=== PATIENT | female | born 1990 | race Caucasian/White ===

== ENCOUNTER 2018-07-11 12:01 | Emergency (ER) | payer BC ==
--- OUTSIDE RECORDS SUMMARY | 2018-07-11 12:07 | XMS REPORT | Continuity of Care Document ---
:1990 External Reference #:[id number] Author Name Eh Paty Care Team Providers Name Role Phone Teri Pascal MD Primary Care Physician Unavailable Payers Date Identification Numbers Payment Provider Subscriber Policy Number: [id number] [facility] simeon Schwab PayID: [id number] [address] [address] [place] [address] Advance Directives Description No Information Available Problems Description No Information Family History Date Family Member(s) Observation Comments Father Hypercholesterolemia Father Hyperthyroidism Father Paraplegic Mother Diabetes, Type 2 Children None Siblings 2 Siblings Oldest of 3 children First Brother A&W First Sister Hyperthyroidism Paternal Grandfather due to DE () Paternal Grandmother due to Colon Cancer () Maternal Grandfather due to Uknown Cod to pt () Maternal Grandmother Emphysema Social History Type Date Description Comments Sex Unknown Education Highest Level Completed, Master's Degree Marital Status Lives With Diet Healthy, Well Balanced Pets 2 cats Occupation Medical Esthetician Tobacco Use Start: Unknown Never Smoked Cigarettes ETOH Use Rarely consumes alcohol Recreational Drug Use Denies Drug Use Tobacco Use Start: Unknown Patient has never smoked Smoking Status Reviewed: 06/15/18 Patient has never smoked Exercise Type/Frequency Exercises regularly Seat Belt/Car Seat Always uses seat belt Currently Active Patient is currently sexually active Contraceptive Methods None STD's No STD History Allergies, Adverse Reactions, Alerts Date Description Reaction Status Severity Comments 01/20/2018 NKDA Active 02/18/2018 Environmental Cough, Nasal congestion Active Seasonal/pollen Medications Medication Date Status Form Strength Qnty SIG Indications Ordering Provider Progesterone 03/19/ Active Capsules 100mg 90caps place 1 Barbra Micronized 2018 capsule herb Quezada MD at bedtime Levothyroxine 01/20/ Active Tablets 50mcg/75mc 30tabs Barbra Sodium 2017 g MD Damien Singulair 00/ Active Unknown 0000 Iron (Ferrous 00/ Active Unknown Gluconate) 0000 Vitamin D / Active Unknown (Cholecalciferol 0000 ) Vitamin / Active Unknown 0000 Misoprostol 02/18/ Hx Tablets 200mcg 8tabs 4 tabs to Barbra 2018 - vagina Damien and 2017 repeat in 3 hours Magnesium / Hx Unknown 0000 - 2017 Medications Administered in Office Medication Date Status Form Strength Qnty SIG Indications Ordering Provider PT SCRN Tbco Administered Injection Barbra Id as Non User 018 MD Damien PT SCRN Tbco Administered Injection Barbra Id as Non User 018 MD Damien PT SCRN Tbco Administered Injection Barbra Id as Non User 018 MD Damien PT SCRN Tbco Administered Injection Barbra Id as Non User 018 MD Damien Immunizations Description No Information Available Vital Signs Date Vital Result Comment 06/15/2018 8:51am Height 61 inches 5'1" Weight 148.00 lb BMI (Body Mass Index) 28.0 kg/m2 Last Menstrual Period [id number] 1 Parity 0 03/19/2018 3:30pm BP Systolic 130 mmHg BP Diastolic 88 mmHg Height 61 inches 5'1" Weight 151.00 lb BMI (Body Mass Index) 28.5 kg/m2 Last Menstrual Period 0646744 1 Parity 0 02/25/2018 12:24pm BP Systolic 132 mmHg BP Diastolic 86 mmHg Height 61 inches 5'1" Weight 153.00 lb BMI (Body Mass Index) 28.9 kg/m2 Last Menstrual Period 9286114 1 Parity 0 02/18/2018 8:14am BP Systolic 140 mmHg BP Diastolic 82 mmHg Height 61 inches 5'1" Weight 157.00 lb BMI (Body Mass Index) 29.7 kg/m2 Last Menstrual Period 1002256 1 Parity 0 01/20/2018 3:09pm BP Systolic 124 mmHg BP Diastolic 68 mmHg Height 61 inches 5'1" Weight 156.00 lb BMI (Body Mass Index) 29.5 kg/m2 Last Menstrual Period 3529102 1 Parity 0 Results Test Date Facility Test Result H/L Range Note Laboratory test 02/25/2018 [facility] Surgical SEE RESULT 1 [place] [address] Pathology BELOW [phone] PNL No 02/17/2018 [facility] Rubella Screen Immune Immune Urine [address] [place] [address] [phone] Hemoglobin A1c 5.4 % N 4.0-5.6 2 Hepatitis B Surface Antigen Nonreactive Nonreactive Syphillis Igg W/Reflex RPR Nonreactive Nonreactive 3 CBC With No 02/17/2018 [facility] White Blood 11.2 10^3/uL High 3.5-10.8 Diff [address] [employer] [place] [address] [phone] Red Blood Count 4.69 10^6/uL N 4.00-5.40 Hemoglobin 14.7 g/dL N 12.0-16.0 Hematocrit 44 % N 35-47 Mean Corpuscular Volume 93 fL N 80-97 Mean Corpuscular Hemoglobin 31 pg N 27-31 Mean Corpuscular HGB Conc 34 g/dL N 31-36 Red Cell Distribution Width 13 % N 10.5-15 Platelet Count 355 10^3/uL N 150-450 Mean Platelet Volume 7.9 fL N 7.4-10.4 Type And Screen 02/17/2018 [facility] Patient Blood A Positive [address] [employer] [place] [address] [phone] Antibody Screen NEGATIVE HIV 1/2 AB 02/17/2018 [facility] HIV 1 2 Nonreactive Nonreactive 4 Evaluation [address] [employer] [place] [address] [phone] Lead 02/17/2018 [facility] Lead,Venous, < 1.0 g/dL 0.0- 4.9 5 [address] [place], [place] [id number] [phone] Venous/Capillary Venous Submitting Laboratory Phone [phone] Laboratory test 01/20/2018 [facility] Cytology SEE RESULT 7 [place] [address] BELOW [phone] GC/Chlamydia 01/20/2018 [facility] Chlamydia Negative [place] [address] trachomatis Rna [phone] Neisseria gonorrhoeae (GC) Rna Negative Negative 1 SEE RESULT BELOW Name: SOFI SCHWAB : [address]: Barbra Quezada MD Acct: [id number] Unit: [id number] AGE: 28 Location: [facility] Re02/25/18 SEX: F Status: REG REF SPEC: [id number] GIOVANNI: 02/25/18-[address] [facility] [address]: Barbra Quezada MD REQ: [id number] RECD: 02/25/18 STATUS: SOUT _ ORDERED: LEVEL 4 COMMENTS: [id number] FINAL DIAGNOSIS Uterine contents, curettage: -- Products of conception including necrotic decidua and immature chorionic villi. CLINICAL HISTORY LMP 11/28/17, ultrasound 02/18/18 6 wld, no heartbeat, tissue passed 02/25 PRE-OPERATIVE DIAGNOSIS Missed GROSS DESCRIPTION The specimen is received in formalin labeled, POC, and consists of a 7.7 x 5.6 by up to 1.4 cm aggregate of sandy-santiago irregular to saccular membranous and papilliferous soft tissue fragments admixed with a small amount of red-brown blood clot. The saccular tissue fragment is partially lined by glistening smooth sandy membranous tissue and contains transparent viscid material. Chorionic villi are identified. No parts are identified. Injection Molding Supervisor sections, two cassettes. Signed by and Reported on: Precious Paula MD 02/27/18 1414 END OF REPORT DEPARTMENT OF PATHOLOGY, [address] [place] [address] Richard Desphande M.D. Director [facility] # [id number] 2 Therapeutic target for the treatment of diabetes mellitus patients is <7% HBA1C, and in selective patients <6.0%. Please refer to [place] [employer] diabetic care guidelines for further information. 3 Warning: A positive result is not useful for establishing a diagnosis of syphilis. In most situations, such a result may reflect a prior treated infection; a negative result can exclude a diagnosis of syphilis except for incubating or early primary disease. 4 It is recognized that currently available assays for the detection of antibodies to HIV-1 and/or HIV-2 may not detect all infected individuals. HIV antibodies may be undetectable in some stages of the infection and in some clinical conditions. The performance of this assay has not been established for populations of infants or children. Assayed by Chemiluminescence Microparticle Immunoassay on the Siemens Advia Centaur CP. Values obtained with different methods or kits cannot be used interchangeably.The diagnostic specificity of the ADVIA Centaur 1/O/2 Enhanced assay in the low risk population was 99.90% (6052/6058) with a 95% confidence interval of 99.78 to 99.96%. 5 ADDITIONAL INFORMATION Testing performed by Inductively Coupled Plasma-Mass Spectrometry (ICP-MS). This test was developed and its performance characteristics determined by [facility] in a manner consistent with CLIA requirements. This test has not been cleared or approved by the U.S. Food and Drug Administration. 6 Test Performed by: [facility] [address] [place] [address] 7 SEE RESULT BELOW Name: JOSSELINSOFI : [address]: Barbra Quezada MD Acct: [id number] Unit: [id number] AGE: 27 Location: [facility] Re01/20/18 SEX: F Status: REG REF SPEC: [id number] GIOVANNI: 01/20/[address] [facility] [address]: Barbra Quezada MD REQ: [id number] RECD: 01/21/188 STATUS: SOUT _ ORDERED: TP IMAGE ANALYS, HPV/Thin Prep COMMENTS: [id number] Negative for Intraepithelial lesion or Malignancy Date Time Test Result Flag (u) Normal Range 01/20/18 1655 @ HPV RNA POSITIVE An Negative @ @ The high-risk HPV types detected by the assay include: 16, @ 18, 31, 33, 35, 39, 45, 51, 52, 56, 58, 59, 66, and 68. A. Ectocervical/Endocervical Specimen Adequacy: Satisfactory of evaluation Transformation zone component identified Patient Information: HPV: High risk HPV RNA testing regardless of pap results. Actual Specimen Date: 01/20/18 Last Menstrual Date: 11/28/17 Signed by and Reported on: OTONIEL Lamb(ASC) 7068 This Pap test was evaluated with the assistance of the CampEasyPrep Test Imaging System. Due to cytologic findings at the mixed animal veterinarian microscope, comprehensive manual rescreening by a Cooling Pipe Inspector may be required. The Pap Smear is a screening test designed to aid in the detection of premalignant and malignant conditions of the uterine cervix. It is not a diagnostic procedure and should not be used as the sole means of detecting cervical cancer. Both false- positive and false- negative reports do occur. Depending on your risk status, a Pap smear should be obtained and evaluated every 1-3 years. END OF REPORT DEPARTMENT OF PATHOLOGY, [address] [place] [address] Richard Deshpande M.D. Director [facility] # [id number] Procedures Date Code Description Status 02/18/2018 66614 OB Ultrasound First Trimester Completed Encounters Type Date Location Provider Dx Diagnosis Office Visit 03/19/2018 [facility] Office Barbra Quezada O03.9 Complete or unsp 3:15p spontaneous without complication Office Visit 02/25/2018 [facility] Office Barbra Quezada O03.9 Complete or unsp 12:30p spontaneous without complication Office Visit 02/18/2018 [facility] Office Barbra Quezada O02.1 Missed 1:15p Office Visit 02/18/2018 [facility] Marina Lilly O36.80x0 w 9:00a DONOVAN Vora inconclusive viability, unsp Office Visit 01/20/2018 [facility] Barbra Quezada, N92.6 Irregular 3:00p menstruation, unspecified Plan of Treatment 03/19/2018 - Barbra Quezada MDO03.9 Complete or unspecified spontaneous without complicComments:Pt 28 yo presents after spontaneous loss after misoprostol use. Pt still very sadby loss but is hopeful to conceive again. Pt to use micronized progesterone starting 2 days post ovulation and check test at day 28 if negative then can d/c progesterone and restartwith next cycle at 2 days post ovulation. Pt to f/u in May for review of cycles.
--- OUTSIDE RECORDS SUMMARY | 2018-07-11 12:07 | XMS REPORT | Continuity of Care Document ---
:1990 External Reference #:[id number] Author Name Eh Paty Care Team Providers Name Role Phone Teri Pascal MD Primary Care Physician Unavailable Payers Date Identification Numbers Payment Provider Subscriber Policy Number: [id number] [facility] simeon Schwab PayID: [id number] [address] [address] [place] [address] Advance Directives Description No Information Available Problems Description No Information Family History Date Family Member(s) Observation Comments Father Hypercholesterolemia Father Hyperthyroidism Father Paraplegic Mother Diabetes, Type 2 Children None Siblings 2 Siblings Oldest of 3 children First Brother A&W First Sister Hyperthyroidism Paternal Grandfather due to [place] () Paternal Grandmother due to Colon Cancer () Maternal Grandfather due to Uknown Cod to pt () Maternal Grandmother Emphysema Social History Type Date Description Comments Sex Unknown Education Highest Level Completed, Master's Degree Marital Status Lives With Diet Healthy, Well Balanced Pets 2 cats 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 Tobacco Use Start: Unknown Never Smoked Cigarettes [...] tabs to Barbra 2018 - vagina Damien rocco NAIR 2017 repeat in 3 hours Magnesium / [...] Signs Date Vital Result Comment 06/15/2018 8:51am BP Systolic 118 mmHg BP Diastolic 78 mmHg Height 61 inches 5'1" Weight 148.00 lb BMI (Body Mass Index) 28.0 kg/m2 Last Menstrual Period 7564829 2 Parity 0 03/19/2018 3:30pm BP Systolic 130 mmHg BP Diastolic 88 mmHg Height 61 inches 5'1" Weight 151.00 lb BMI (Body Mass Index) 28.5 kg/m2 Last Menstrual Period 1089815 1 Parity 0 02/25/2018 12:24pm BP Systolic 132 mmHg BP Diastolic 86 mmHg Height 61 inches 5'1" Weight 153.00 lb BMI (Body Mass Index) 28.9 kg/m2 Last Menstrual Period 4125221 1 Parity 0 02/18/2018 8:14am BP Systolic 140 mmHg BP Diastolic 82 mmHg Height 61 inches 5'1" Weight 157.00 lb BMI (Body Mass Index) 29.7 kg/m2 Last Menstrual Period 3920235 1 Parity 0 01/20/2018 3:09pm BP Systolic 124 mmHg BP Diastolic 68 mmHg Height 61 inches 5'1" Weight 156.00 lb BMI (Body Mass Index) 29.5 kg/m2 Last Menstrual Period 8421390 1 Parity 0 Results Test Date Facility Test Result H/L Range Note Laboratory test 02/25/2018 [facility] Surgical SEE RESULT 1 [place] [address] Pathology BELOW [phone] PNL No 02/17/2018 [facility] Rubella Screen Immune Immune Urine 10 [place] [address] [phone] Hemoglobin A1c 5.4 % N 4.0-5.6 2 Hepatitis B Surface Antigen Nonreactive Nonreactive Syphillis Igg W/Reflex RPR Nonreactive Nonreactive 3 CBC With No 02/17/2018 [facility] White Blood 11.2 10^3/uL High 3.5-10.8 Diff [facility] [place] [address] [phone] Red Blood Count 4.69 10^6/uL N 4.00-5.40 [...] fL N 7.4-10.4 Type And Screen 02/17/2018 [facility] Patient Blood A Positive [address] [place] [address] [phone] Antibody Screen NEGATIVE HIV 1/2 AB 02/17/2018 [facility] HIV 1 2 Nonreactive Nonreactive 4 Evaluation 10 [facility] [place] [address] [phone] Lead 02/17/2018 [facility] Lead,Venous, < 1.0 g/dL 0.0- 4.9 5 10 [facility] [place] [address] [phone] Venous/Capillary Venous Submitting Laboratory Phone [phone] Laboratory test 01/20/2018 [facility] Cytology SEE RESULT 7 [place] [address] BELOW [phone] GC/Chlamydia 01/20/2018 [facility] Chlamydia Negative [place] [address] trachomatis Rna [phone] Neisseria gonorrhoeae (GC) Rna Negative Negative 1 SEE RESULT BELOW Name: SOFI SCHWAB : [address]: Barbra Quezada MD Acct: [id number] Unit: [id number] AGE: 28 Location: [facility] Re02/25/18 SEX: F Status: REG REF SPEC: [id number] GIOVANNI: 02/25/18-1321 [facility] DR: Barbra Quezada MD REQ: [id number] RECD: 02/25/18 STATUS: SOUT _ ORDERED: LEVEL 4 COMMENTS: [id number] FINAL DIAGNOSIS Uterine contents, curettage: -- Products [...] villi are identified. No parts are identified. Application Lead sections, two cassettes. Signed by and Reported on: Precious Paula MD 02/27/18 1414 END OF REPORT DEPARTMENT OF PATHOLOGY, [address] [place] [address] Richard Deshpande M.D. Director [facility] # [id number] 2 Therapeutic target for the treatment of diabetes mellitus patients is <7% HBA1C, and in selective patients <6.0%. Please refer to [place] Diabetes Association diabetic care guidelines for further [...] developed and its performance characteristics determined by [facility] in a manner consistent with CLIA requirements. This test has not been cleared or approved by the U.S. Food and Drug Administration. 6 Test Performed by: [facility] [address] [place] [address] 7 SEE RESULT BELOW Name: SOFI SCHWAB : [address]: Barbra Quezada MD Acct: [id number] Unit: [id number] AGE: 27 Location: [facility] Re01/20/18 SEX: F Status: REG REF SPEC: [id number] GIOVANNI: 01/20/181 [facility] [address]: Barbra Quezada MD REQ: [id number] RECD: 01/21/188312 STATUS: SOUT _ ORDERED: TP IMAGE ANALYS, HPV/Thin Prep COMMENTS: [id number] Negative for Intraepithelial lesion or Malignancy Date Time Test Result Flag (u) Normal Range 01/20/18 4619 @ HPV RNA POSITIVE An Negative @ [...] Signed by and Reported on: OTONIEL Lamb(ASC) 0019 This Pap test was evaluated with the assistance of the HealthonomyPrep Test Imaging System. Due to cytologic findings at the other spatial scientist microscope, comprehensive manual rescreening by a Director Of Campus Recreation may be required. The Pap Smear is [...] years. END OF REPORT DEPARTMENT OF PATHOLOGY, [address] [place] [address] Richard Deshpande M.D. Director [facility] # [id number] Procedures Date Code Description Status 02/18/2018 56085 OB Ultrasound First Trimester Completed Encounters Type Date Location Provider Dx Diagnosis Office Visit 03/19/2018 [facility] Barbra Quezada, O03.9 Complete or unsp 3:15p spontaneous without complication Office Visit 02/25/2018 [facility] Barbra Quezada O03.9 Complete or unsp 12:30p spontaneous without complication Office Visit 02/18/2018 [facility] Barbra Quezada, O02.1 Missed 1:15p Office Visit 02/18/2018 [facility] Marina Vijaya O36.80x0 w 9:00a DONOVAN Vora inconclusive viability, unsp Office Visit 01/20/2018 [facility] Barbra Quezada, N92.6 Irregular 3:00p menstruation, unspecified Plan of Treatment Future Appointment(s):07/23/2018 2:20 pm - Wendy Shelton CNM at [facility] 2:00 pm - Ultrasounds at [facility]
--- OUTSIDE RECORDS SUMMARY | 2018-07-11 12:07 | XMS REPORT | Continuity of Care Document ---
:1990 External Reference #:[id number] Author Name Eh Paty Care Team Providers Name Role Phone Teri Pascal MD Primary Care Physician Unavailable Payers Date Identification Numbers Payment Provider Subscriber Policy Number: [id number] [facility] simeon Schwab PayID: [id number] [address] [address] [place] [address] Advance Directives Description No Information Available Problems Description No Information Family History Date Family Member(s) Observation Comments Father Hypercholesterolemia Father Hyperthyroidism Father Paraplegic Mother Diabetes, Type 2 Children None Siblings 2 Siblings Oldest of 3 children First Brother A&W First Sister Hyperthyroidism Paternal Grandfather due to MT () Paternal Grandmother due to Colon Cancer () Maternal Grandfather due to Uknown Cod to pt () Maternal Grandmother Emphysema Social History Type Date Description Comments Sex Unknown Education Highest Level Completed, Master's Degree Marital Status Lives With Diet Healthy, Well Balanced Pets 2 cats Occupation [employer] Tobacco Use Start: Unknown Never Smoked Cigarettes [...] Mass Index) 28.0 kg/m2 Last Menstrual Period [id number] 2 Parity 0 03/19/2018 3:30pm BP Systolic 130 mmHg BP Diastolic 88 mmHg Height 61 inches 5'1" Weight 151.00 lb BMI (Body Mass Index) 28.5 kg/m2 Last Menstrual Period [id number] 1 Parity 0 02/25/2018 12:24pm BP Systolic 132 mmHg BP Diastolic 86 mmHg Height 61 inches 5'1" Weight 153.00 lb BMI (Body Mass Index) 28.9 kg/m2 Last Menstrual Period 0481496 1 Parity 0 02/18/2018 8:14am BP Systolic 140 mmHg BP Diastolic 82 mmHg Height 61 inches 5'1" Weight 157.00 lb BMI (Body Mass Index) 29.7 kg/m2 Last Menstrual Period 1796817 1 Parity 0 01/20/2018 3:09pm BP Systolic 124 mmHg BP Diastolic 68 mmHg Height 61 inches 5'1" Weight 156.00 lb BMI (Body Mass Index) 29.5 kg/m2 Last Menstrual Period 7148191 1 Parity 0 Results Test Date Facility Test Result H/L Range Note Laboratory test 02/25/2018 [facility] Surgical SEE RESULT 1 [place] [address] Pathology BELOW [phone] PNL No 02/17/2018 [facility] Rubella Screen Immune Immune Urine [address] [place] [address] [phone] Hemoglobin A1c 5.4 % N 4.0-5.6 2 Hepatitis B Surface Antigen Nonreactive Nonreactive Syphillis Igg W/Reflex RPR Nonreactive Nonreactive 3 CBC With No 02/17/2018 [facility] White Blood 11.2 10^3/uL High 3.5-10.8 Diff 10 [facility] [address] [phone] Red Blood Count 4.69 10^6/uL N 4.00-5.40 [...] fL N 7.4-10.4 Type And Screen 02/17/2018 [facility] Patient Blood A Positive [address] [place] [address] [phone] Antibody Screen NEGATIVE HIV 1/2 AB 02/17/2018 [facility] HIV 1 2 Nonreactive Nonreactive 4 Evaluation 10 [facility] [place] [address] [phone] Lead 02/17/2018 [facility] Lead,Venous, < 1.0 g/dL 0.0- 4.9 5 10 [facility] [address] [phone] Venous/Capillary Venous Submitting Laboratory Phone [phone] Laboratory test 01/20/2018 [facility] Cytology SEE RESULT 7 [place] [address] BELOW [phone] GC/Chlamydia 01/20/2018 [facility] Chlamydia Negative [place] [address] trachomatis Rna [phone] Neisseria gonorrhoeae (GC) Rna Negative Negative 1 SEE RESULT BELOW Name: SOFI SCHWAB : [address]: Barbra Quezada MD Acct: [id number] Unit: [id number] AGE: 28 Location: [facility] Re02/25/18 SEX: F Status: REG REF SPEC: [id number] GIOVANNI: 02/25/18-[address] [facility] [address]: Barbra Quezada MD REQ: [id number] RECD: 02/25/18 STATUS: SOUT _ ORDERED: LEVEL 4 COMMENTS: [id number] FINAL DIAGNOSIS Uterine contents, curettage: -- Products [...] villi are identified. No parts are identified. Machine Steak Tenderizer sections, two cassettes. Signed by and Reported on: Precious Paula MD 02/27/18 1414 END OF REPORT DEPARTMENT OF PATHOLOGY, [address] [place] [address] Richard Deshpande M.D. Director [facility] # [id number] 2 Therapeutic target for the treatment of diabetes mellitus patients is <7% HBA1C, and in selective patients <6.0%. Please refer to [employer] diabetic care guidelines for further [...] developed and its performance characteristics determined by [facility] in a manner consistent with CLIA requirements. This test has not been cleared or approved by the U.S. Food and Drug Administration. 6 Test Performed by: [facility] [address] [place] [address] 7 SEE RESULT BELOW Name: SOFI SCHWAB : [address]: Barbra Quezada MD Acct: [id number] Unit: [id number] AGE: 27 Location: [facility] Re01/20/18 SEX: F Status: REG REF SPEC: [id number] GIOVANNI: 01/20/[address] [facility] [address]: Barbra Quezada MD REQ: [id number] RECD: 01/21/186173 STATUS: SOUT _ ORDERED: TP IMAGE ANALYS, HPV/Thin Prep COMMENTS: [id number] Negative for Intraepithelial lesion or Malignancy Date Time Test Result Flag (u) Normal Range 01/20/18 5523 @ HPV RNA POSITIVE An Negative @ [...] Signed by and Reported on: OTONIEL Lamb(ASC) 2509 This Pap test was evaluated with the assistance of the AuterraPrep Test Imaging System. Due to cytologic findings at the cemetery warden microscope, comprehensive manual rescreening by a Copper Etcher may be required. The Pap Smear is [...] years. END OF REPORT DEPARTMENT OF PATHOLOGY, [address] [place] [address] Richard Deshpande M.D. Director [facility] # [id number] Procedures Date Code Description Status 02/18/2018 43319 OB Ultrasound First Trimester Completed Encounters Type Date Location Provider Dx Diagnosis Office Visit 03/19/2018 [facility] Barbra Quezada, O03.9 Complete or unsp 3:15p spontaneous without complication Office Visit 02/25/2018 [facility] Barbra Quezada O03.9 Complete or unsp 12:30p spontaneous without complication Office Visit 02/18/2018 [facility] Barbra Quezada, O02.1 Missed 1:15p Office Visit 02/18/2018 [facility] Marina Vijaya O36.80x0 w 9:00a DONOVAN Vora inconclusive viability, unsp Office Visit 01/20/2018 [facility] Barbra Quezada, N92.6 Irregular 3:00p menstruation, unspecified Plan of Treatment Future Appointment(s):07/23/2018 2:20 pm - Wendy Shelton CNM at [facility] 2:00 pm - Ultrasounds at [facility]
[2018-07-11 12:35] VITALS: BP 119/76
--- NOTE | 2018-07-11 12:47 | UC ---
Ear Complaint HPI - HPI Summary HPI Summary: R muffled ear w/ occasional popping. currently . She would like to find out if she has ear infxn. denies ear pain or feve.r - History of Current Complaint Chief Complaint: UCEar Stated Complaint: EAR PLUGGED Time Seen by Provider: 07/11/18 12:40 Hx Obtained From: Patient Hx Last Menstrual Period: 05/14/18 Pain Intensity: 0 Pain Scale Used: 0-10 Numeric Aggravating Factors: Nothing Alleviating Factors: Nothing - Allergies/Home Medications Allergies/Adverse Reactions: Allergies Allergy/AdvReac Type Severity Reaction Status Date / Time No Known Allergies Allergy Verified 07/11/18 12:35 Home Medications: Home Medications Cholecalciferol TAB* [Vitamin D TAB*] 2,000 units PO DAILY 07/11/18 [History Confirmed 07/11/18] Iron,Carb/Vit C/Vit B12/Folic [Iron 100 Plus Tablet] 1 tab PO DAILY 07/11/18 [ History Confirmed 07/11/18] Levothyroxine TAB* [Synthroid 75 MCG TAB*] 1 tab PO DAILY 07/11/18 [History Confirmed 07/11/18] Montelukast Sodium TAB* [Singulair 10 MG TAB*] 1 tab PO DAILY 07/11/18 [History Confirmed 07/11/18] 95/Iron Fum/Folic/Dha [ + Dha Combo Pack] 1 tab PO DAILY [History Confirmed 07/11/18] Progesterone, Micronized [Progesterone] 1 tab PO DAILY 07/11/18 [History Confirmed 07/11/18] PMH/Surg Hx/FS Hx/Imm Hx - Additional Past Medical History Additional PMH: Previously Healthy: Yes - Surgical History Surgical History: None - Social History Alcohol Use: None Substance Use Type: None Smoking Status (MU): Never Smoked Tobacco Review of Systems All Other Systems Reviewed And Are Negative: Yes Constitutional: Negative: Fever Skin: Negative: Rash ENT: Positive: Ear Ache. Negative: Sore Throat Physical Exam Triage Information Reviewed: Yes Appearance: Well-Appearing Vital Signs: Initial Vital Signs Temp 97.3 F 07/11/18 12:32 Pulse 78 07/11/18 12:32 Resp 12 07/11/18 12:32 BP 119/76 07/11/18 12:32 Pulse Ox 99 07/11/18 12:32 Vital Signs Reviewed: Yes ENT: Positive: Pharynx normal, TMs normal - L TM/CANAL NL; R CANAL IMPACTED W/ CERUMEN. CLEARED AFTER LAVAGE., Uvula midline Ear Complaint Course/Dx - Course Course Of Treatment: IMPACTED CERUMEN IN R EAR IN A PT. AFTER LAVAGE, SHE TOLERATED WELL AND MUFFLED R EAR RESOLVED. - Differential Dx/Diagnosis Differential Diagnosis/HQI/PQRI: URI, Other Provider Diagnosis: Impacted cerumen of right ear Discharge - Sign-Out/Discharge Documenting (check all that apply): Patient Departure All imaging exams completed and their final reports reviewed: No Studies - Discharge Plan Condition: Good Disposition: HOME Patient Education Materials: Cerumen Impaction (ED) Referrals: Dara Portillo MD [Primary Care Provider] - - Billing Disposition and Condition Condition: GOOD Disposition: Home
== END 2018-07-11 12:55 | disposition home or self-care (01) ==
LOC: UCEAST 12:01
DX: O26.899 Other specified pregnancy related conditions, unspecified trimester (principal); H61.21 Impacted cerumen, right ear
CPT/HCPCS: 99212; G0463

== ENCOUNTER 2019-02-04 20:51 | Inpatient (IN) | payer BC ==
[2019-02-04] MEDS ORDERED: Lactated Ringers 1000 ML Bag* 1,000 ML IV ONE (21:53)
[2019-02-04] MEDS ORDERED: Buffered Lidocaine 1% SYRIN* 1 ML/SYRINGE INTRADERM ONE (21:53)
[2019-02-04] MEDS ORDERED: Nalbuphine* 10 MG/ML 1 ML VIAL IM PRN (21:53)
[2019-02-04] MEDS ORDERED: Promethazine INJ(RESTRICTED)* 25 MG/ML 1 ML VIAL IM PRN (21:53)
[2019-02-04] MEDS ORDERED: Dinoprostone* 10 MG VAG.SUPP VAGINAL ONE (21:53)
--- NOTE | 2019-02-04 21:59 | HP ---
General Information - Reason for Visit Here for induction of labor due to dx of pre-eclampsia - General Information Maternal Age: 29 Grav: 1 Para: 0 SAB: 0 IEA: 0 Estimated Due Date: 02/18/19 Determined By: LMP Maternal Blood Type and Rh: A Positive - Results this Serology/RPR Result: Non-Reactive Rubella Result: Immune HBsAg Result: Negative HIV Result: Negative GBS Culture Result: Negative Past Medical History Delivery History: See Records Delivery History Comment: No previous pregnancies Pertinent Past Medical History: See Records Past Medical History Comment: hypothyroidism--on replacement asthma migraine anorexia, previous hx Pertinent Past Surgical History: None Pertinent Family History: See Records Family History Comment: hypercholesterolemia hyperthyroidism DM 2 colon cancer [place] - Antepartal Records Antepartal Records: Reviewed, Complicated by: - hypothyroid; echogenic focus on anatomy ultrasound Review of Systems Constitutional: Comfortable CV Complaint: No Respiratory: Shortness of Breath: No Gastrointestinal: No Nausea/Vomiting, Soft Stool Genitourinary: No Dysuria, No Bleeding, No Leaking Fluid Musculoskeletal: No Complaint Neurological: No Visual Changes, Headache - mild Movement: Normal Exam Allergies/Adverse Reactions: Allergies No Known Allergies Allergy (Verified 02/04/19 21:32) BP 132/85 T 99.3 HR 92 - Measurements Height: 5 ft 1 in Weight: 179 lb Weight in lbs: 179.935411 Body Mass Index (BMI): 33.8 Pre- Weight: 147 lb Weight Gained This : 32 lbs and 0 ozs - Exam Breast: Breast Exam Deferred CVA: No CVA Tenderness Extremities: No Edema Heart: Normal Rhythm/Heart Sounds HEENT: No Significant Findings Lungs: Clear Bilaterally Rectal: Rectal Exam Deferred Reflexes: DTR 2+, - - no clonus Thyroid: - - WNL @ entry to care - Abdominal Exam Abdomen Exam: Non-Tender - Ultrasound/Biophysical Profile Ultrasound Status: Not Done Targeted Exam Findings Estimated Weight: 6.5-7lb Cervical Exam: Closed Effacement: Thick Station: -2 Presenting Part: Vertex Membrane Status: Intact Bleeding/Discharge: None EFM Findings - External Monitor Findings Baseline Heart Rate: 135 External Monitor Findings: Accelerations Present, No Pattern of Variable or Late Decelerations, Variability Moderate Contractions: Irregular, Mild - Patient does not feel, < 45 Seconds Assessment/Plan - Assessment IUP @ 38+0 weeks gestation for induction due to pre-eclampsia. No evidence metabolic acidemia. Intact bag of keen. - Obstetrical Risk Factors Obstetrical Risk Factors: PreEclampsia - Plan Plan: Induction, Cervical Ripening, Admit - Anticipate Vaginal Delivery Plan Comment: Reviewed options for cervical ripening, PARQ discussion of cervidil and patient in agreement. PRN therapeutic rest ordered. - Date/Time of Admission Date of Admission: 02/04/19 Time of Admission: 22:15
[2019-02-04 23:48] LABS: Urine Benzodiazepine Screen None Detected (None Detect); Urine Opiates Screen None Detected (None Detect)
[2019-02-05] MEDS ORDERED: Levothyroxine TAB* 88 MCG TAB PO SCH (06:00)
[2019-02-05] MEDS: Montelukast Sodium TAB* 10 MG PO SCH (09:01)
--- NOTE | 2019-02-05 11:51 | PN ---
Progress Note - Progress Note Date of Service: 02/05/19 Note: S: Pt reports that she slept well s/p IM Nubain/Phenergan. Still feeling groggy this morning. Reports a lot of anxiety about VE but open to it as she's ready to continue induction process. Denies MAYNARD. No visual changes. No RUQ pain. O: BP 124/82 HR 97 T98.9 FHT 140bpm. Moderate variability. +Accels. No decels UCs q 2-3 VE 2cm/70%/vtx -1, intact Pt v. uncomfortable with exam, screamed A: IUP at 38-1/7 No evidence of metabolic acidemia Pre-eclampsia Da Silva's Score 7, favorable for induction Anxiety P: PARQ IV pitocin. Given discomfort with VE and favorable cervix I recommend this agent. Pt and FOB agree. Discussed pt's plans re: pain relief. She is planning an epidural. Will attempt to wait on future VE until after placement unless medically indicated sooner. Pt ready to proceed. Agrees to IV placement and ongoing induction for pre-eclampsia.
[2019-02-05] MEDS ORDERED: Oxytocin in LR* 0 UNITS/0 ML BAG IVPB ONE (11:56)
[2019-02-05] MEDS ORDERED: Oxytocin in LR* 20 UNITS/1,000 ML BAG IVPB ONE (11:59)
[2019-02-05] MEDS ORDERED: Oxytocin in LR* 20 UNITS/1,000 ML BAG IVPB SCH (12:00)
[2019-02-05 12:05] LABS: ABS Eosinophils 0.1 10^3/ul (0-0.6); ABS Lymphocytes 1.8 10^3/ul (1.0-4.8); ABS Monocytes 1.3 10^3/ul (0-0.8); ABS Neutrophils 11.5 10^3/ul (1.5-7.7); Eosinophil % 0.4 %; Hematocrit 41 % (35-47); Hemoglobin 13.6 g/dL (12.0-16.0); Lymphocyte % 12.5 %; Mean Corpuscular HGB Conc 34 g/dL (31-36); Mean Corpuscular Hemoglobin 31 pg (27-31); Mean Corpuscular Volume 92 fL (80-97); Mean Platelet Volume 7.9 fL (7.4-10.4); Nucleated Red Blood Cells % 0.1; Platelet Count 299 10^3/uL (150-450); Red Blood Count 4.39 10^6 /uL (3.70-4.87); Red Cell Distribution Width 16 % (10-15); White Blood Count 14.7 10^3/uL (3.5-10.8)
[2019-02-05] MEDS: Lactated Ringers 1000 ML Bag* 1,000 ML IV SCH ×3 (12:06→21:26)
[2019-02-05 12:16] LABS: Platelet Count 301 10^3/ul (150-450)
[2019-02-05 12:22] LABS: Albumin 3.4 g/dL (3.2-5.2); Albumin/Globulin Ratio 0.9 (1-3); BUN/Creatinine Ratio 17.4 (8-20); EGFR African American 120.1 (>60); EGFR Non-African American 99.2 (>60); Globulin 3.7 g/dL (2-4); Potassium 4.1 mmol/L (3.5-5.0); Total Bilirubin 0.2 mg/dL (0.2-1.0); Total Protein 7.1 g/dL (6.4-8.9); Uric Acid 4.8 mg/dL (2.3-6.6)
[2019-02-05 12:32] LABS: Activated Partial Thrombo Time 26.6 seconds (26.0-38.0); INR 0.91 (0.82-1.09)
[2019-02-05 12:42] LABS: Schistocytes ABSENT
[2019-02-05 13:06] LABS: Fibrinogen 607.7 mg/dL (110.8-404.3)
--- NOTE | 2019-02-05 16:43 | PN ---
Progress Note - Progress Note Date of Service: 02/05/19 Note: S: Pt uncomfortable with UCs. Able to rest in between. Took a nap this afternoon. Also up and mobile, changing positions. Anxiety about labor process still exists but right now she's coping well. remains at bedside, supportive O: BP 133/82 HR 89 T 98.9 FHT 135bpm. Min-moderate variability during sleep cycles. Moderate variability during wake cycles. +Accels UCs q 2-3 with spaces up to 7-10 min. Still irregular pattern VE deferred A: IUP at 38-1/7 in early labor No evidence of metabolic acidemia Pre-eclampsia P: Continue IV pitocin. Close monitoring of maternal/ status
[2019-02-05] MEDS ORDERED: OBEPIDURAL* 250 ML EPIDURAL ONE (19:24)
--- NOTE | 2019-02-05 19:27 | PN ---
Progress Note - Progress Note Date of Service: 02/05/19 Note: Quick note: Pt desires epidural. Anesthesia paged for consult. Plan VE only after pt comfortable. Pt agrees
[2019-02-05] MEDS ORDERED: Phenylephrine 40 MCG/ML SYRINGE IV PUSH PRN ×2 (19:50)
[2019-02-05] MEDS ORDERED: Lactated Ringers 1000 ML Bag* 1,000 ML IV ONE (19:50)
[2019-02-05] MEDS ORDERED: Famotidine TAB* 20 MG PO PRN (19:50)
[2019-02-05] MEDS ORDERED: Sodium Citrate/Citric Acid* 15 ML UDC PO PRN (19:50)
[2019-02-05] MEDS ORDERED: Lactated Ringers 1000 ML Bag* 1,000 ML IV SCH (20:00)
[2019-02-05] MEDS ORDERED: OBEPIDURAL* 250 ML EPIDURAL SCH (20:00)
--- NOTE | 2019-02-05 21:03 | PN ---
Progress Note - Progress Note Date of Service: 02/05/19 Note: S: Pt feeling much more comfortable s/p epidural placement. Reports anxiety better managed now that she has pain control. Hoping to rest O: BP 114/73 HR 97 SpO2 100% on RA FHT 145bpm. Moderate variability. +Accels. Isolated decel down to 90bpm x 90 sec after epidural placement. Recovered with position change. No further decels noted UCs q 2-3 min prior to epidural placement with IV pit at 12mu/min. After epidural placement RN restarted IV pitocin at 6mu/min and now UCs q 2-5 min VE 3cm/80%/vtx -1, AROM clear fluid A: IUP at 38-1/7 in early active labor Cat II FHT: doubt metabolic acidemia Pre-eclampsia Anxiety P: PARQ amniotomy. Pt and FOB agree. Done to moderate clear fluid. Close monitoring of maternal/ status. Continue to increase IV pitocin to adequate contraction pattern. Anticipate progression into active labor.
--- NOTE | 2019-02-05 23:50 | PN ---
Progress Note - Progress Note Date of Service: 02/05/19 Note: S: Pt feeling increased pressure, breathing through UCs. FOB at bedside providing consistent support. Pt coping well with change in sensation O: BP 142/97 HR 100 T 98.5 FHT 135bpm. Moderate variability. +Accels. No decels UCs q 2-3 IV pitocin at 8mu/min VE C/C/vtx +2 A: IUP at 38-1/7 in active labor No evidence of metabolic acidemia Pre-eclampsia Anxiety P: Anticipate trial of pushing. Pt coached. Feeling ready
[2019-02-06] MEDS ORDERED: Lidocaine 1% INJ* 10 MG/ML 30 ML SDV ONE (00:31)
[2019-02-06] MEDS ORDERED: Acetaminophen TAB* 325 MG PO PRN (00:32)
[2019-02-06] MEDS ORDERED: Witch Hazel PAD* JAR TOPICAL PRN (00:32)
[2019-02-06] MEDS ORDERED: Glycerin ADULT SUPP PR PRN (00:32)
--- NOTE | 2019-02-06 00:38 | PROCNOTE ---
[facility] OB: Delivery Note - Delivery A Date of : 02/06/19 Time of : 00:05 [place] Sex: Female - "Sarmad" Score 1 Minute: 9 Score 5 Minutes: 9 Gestational Age in Weeks and Days at Delivery: 38 Weeks and 2 Days Delivery Method: Spontaneous Vaginal Labor: Induced - for pre-eclampsia Did Patient attempt ?: N/A, No Previous Amniotic Fluid: Clear Estimated Blood Loss: 350 Anesthesia/Analgesia: CEI for Labor - placed by Dr. Hernandez Delivered By: Katharina Funez - Nursery Level of Nursery: Regular/Bedside - Perineum Perineal Injury: 1st Degree - vaginal laceration repaired with 3-0 Rapide under local infiltration 1% lidocaine and epidural analgesia. Pt tolerated well - Events Delivery Events of Note: Pitocin During Labor - Additional Delivery Notes Additional Delivery Notes: Pt admitted for induction due to pre-eclampsia. Received Cervidil x 1 followed by IV pitocin and amniotomy to clear fluid that resulted in onset active labor with expected progression to complete. Rapid progression from 3cm to complete in < 3 hours. Length of labor 15 hours, 28 min. Pushed x 22 min. liveborn female. Slow, controlled delivery of head. OA to FENG. Shoulders followed easily with maternal push. Infant vigorous with spontaneous cry. HR>110bpm. Delivered to level of maternal pubic bone in presence of short cord. Cord clamped x 2 and cut when pulsations ceased. Spontaneous delivery intact placenta. Membranes complete. Fundus firm to massage with IV pitocin infusing. Minimal bleeding noted. Repair as above. EBL 350mL. At time of note mother and infant in stable condition. Planning to breast feed.
[2019-02-06] MEDS ORDERED: Lactated Ringers 1000 ML Bag* 1,000 ML IV SCH (01:00)
[2019-02-06] MEDS ORDERED: Oxytocin in LR* 20 UNITS/1,000 ML BAG IVPB SCH (01:00)
[2019-02-06] MEDS: Ibuprofen TAB* 600 MG PO SCH ×4 (01:09→18:25)
[2019-02-06] MEDS ORDERED: Ammonia Inhalant* 1 EA AMP ONE (02:14)
[2019-02-06] MEDS: Levothyroxine TAB* 75 MCG TAB PO SCH (06:03)
[2019-02-06] MEDS ORDERED: Simethicone TAB* 80 MG TAB.CHEW PO SCH (08:30)
[2019-02-06] MEDS: Docusate CAP* 100 MG PO SCH ×3 (08:39→21:47)
[2019-02-06] MEDS: Montelukast Sodium TAB* 10 MG PO SCH (12:59)
[2019-02-06] MEDS: Dibucaine 1% 28.35 GM TUBE PR PRN (16:54)
[2019-02-07] MEDS: Ibuprofen TAB* 600 MG PO SCH ×4 (00:01→18:23)
[2019-02-07] MEDS: Levothyroxine TAB* 75 MCG TAB PO SCH (06:03)
[2019-02-07 06:28] LABS: ABS Basophils 0.1 10^3/ul (0-0.2); ABS Eosinophils 0.1 10^3/ul (0-0.6); ABS Lymphocytes 2.8 10^3/ul (1.0-4.8); ABS Monocytes 1.2 10^3/ul (0-0.8); Eosinophil % 0.6 %; Hematocrit 31 % (35-47); Hemoglobin 10.6 g/dL (12.0-16.0); Mean Corpuscular HGB Conc 34 g/dL (31-36); Mean Corpuscular Hemoglobin 32 pg (27-31); Mean Corpuscular Volume 93 fL (80-97); Mean Platelet Volume 7.5 fL (7.4-10.4); Platelet Count 242 10^3/uL (150-450); Red Blood Count 3.36 10^6 /uL (3.70-4.87); Red Cell Distribution Width 16 % (10-15); White Blood Count 14.2 10^3/uL (3.5-10.8)
[2019-02-07 06:42] LABS: Albumin 2.7 g/dL (3.2-5.2); Calcium 8.6 mg/dL (8.6-10.3); EGFR African American 120.1 (>60); EGFR Non-African American 99.2 (>60); Globulin 2.8 g/dL (2-4); Potassium 4.1 mmol/L (3.5-5.0); Total Bilirubin 0.2 mg/dL (0.2-1.0); Total Protein 5.5 g/dL (6.4-8.9)
[2019-02-07] MEDS ORDERED: Ferrous Gluconate TAB* 324 MG TAB PO SCH (09:00)
[2019-02-07] MEDS: Montelukast Sodium TAB* 10 MG PO SCH (09:38)
[2019-02-07] MEDS: Docusate CAP* 100 MG PO SCH ×3 (09:38→20:05)
[2019-02-07] MEDS: Dibucaine 1% 28.35 GM TUBE PR PRN (20:23)
[2019-02-08] MEDS: Ibuprofen TAB* 600 MG PO SCH ×2 (00:18→06:15)
[2019-02-08] MEDS: Levothyroxine TAB* 75 MCG TAB PO SCH (06:15)
[2019-02-08] MEDS: Montelukast Sodium TAB* 10 MG PO SCH (08:20)
[2019-02-08] MEDS: Docusate CAP* 100 MG PO SCH (08:20)
[2019-02-08 08:59] VITALS: BP 135/81
== END 2019-02-08 10:23 | disposition home or self-care (01) | DRG 560 ==
LOC: MCHOBOUT 20:51 → MCHOB 22:21
PROVIDERS: ADMIT Midwife; ATTEND Midwife
PROC: 10E0XZZ Delivery of Products of Conception, External Approach (ICD-10-PCS; principal; 2019-02-06)
PROC: 3E033VJ Introduction of Other Hormone into Peripheral Vein, Percutaneous Approach (ICD-10-PCS; 2019-02-06)
PROC: 10907ZC Drainage of Amniotic Fluid, Therapeutic from Products of Conception, Via Natural or Artificial Opening (ICD-10-PCS; 2019-02-06)
PROC: 0HQ9XZZ Repair Perineum Skin, External Approach (ICD-10-PCS; 2019-02-06)
DX: O14.94 Unspecified pre-eclampsia, complicating childbirth (principal); Z37.0 Single live birth; O70.0 First degree perineal laceration during delivery; O69.3XX0 Labor and delivery complicated by short cord, not applicable or unspecified; O99.284 Endocrine, nutritional and metabolic diseases complicating childbirth; E03.9 Hypothyroidism, unspecified; Z3A.38 38 weeks gestation of pregnancy
CPT/HCPCS: 36415; 80053; 80307; 84550; 85025; 85049; 85362; 85384; 85610; 85730; 86850; 86900; 86901; A9270-GY; J2300; J2550

== ENCOUNTER 2022-06-10 13:01 | Inpatient (IN) ==
[~2022-06-10 13:01] MED LIST: Buffered Lidocaine 1% SYRIN 1 ml INTRADERM ONE
[2022-06-10] MEDS ORDERED: Oxytocin in LR 20,000 MILLI.UNIT/1,000 ML BAG IV SCH (15:00)
[2022-06-10] MEDS ORDERED: Lactated Ringers 1000 ml BAG 1,000 ML IV ONE ×2 (15:00→22:50)
[2022-06-10] MEDS ORDERED: Lactated Ringers 1000 ml BAG 1,000 ML IV SCH ×2 (15:00→23:00)
[2022-06-10 17:30] LABS: Urine Benzodiazepine Screen None Detected (None Detect); Urine Cannabinoids Screen None Detected (None Detect); Urine Opiates Screen None Detected (None Detect)
[2022-06-10 18:54] LABS: ABS Lymphocytes 2.4 10^3/ul (1.0-4.8); ABS Monocytes 1.1 10^3/ul (0-0.8); ABS Neutrophils 11.4 10^3/ul (1.5-7.7); Eosinophil % 0.3 %; Hematocrit 38 % (35-47); Hemoglobin 12.8 g/dL (12.0-16.0); Lymphocyte % 16.1 %; Mean Corpuscular HGB Conc 33 g/dL (31-36); Mean Corpuscular Hemoglobin 30 pg (27-31); Mean Corpuscular Volume 90 fL (80-97); Mean Platelet Volume 8.1 fL (7.4-10.4); Platelet Count 302 10^3/uL (150-450); Red Blood Count 4.27 10^6 /uL (3.70-4.87); Red Cell Distribution Width 15 % (10-15)
[2022-06-10 19:42] LABS: Albumin 3.3 g/dL (3.2-5.2); Albumin/Globulin Ratio 1.2 (1-3); Calcium 8.6 mg/dL (8.6-10.3); Creatinine, Serum 0.67 mg/dL (0.51-0.95); Globulin 2.8 g/dL (2-4); Total Bilirubin 0.3 mg/dL (0.2-1.0); Total Protein 6.1 g/dL (6.4-8.9); eGFR CKD-EPI 117.5 (>60)
[2022-06-10] MEDS ORDERED: Lidocaine 1.5% EPI 1:200,000 30 ML SDV ONE (22:15)
[2022-06-10] MEDS ORDERED: OBEPIDURAL (200 ML) 200 ML EPIDURAL ONE (22:15)
[2022-06-10] MEDS ORDERED: Sodium Citrate/Citric Acid LIQ 15 ML UDC PO PRN (22:50)
[2022-06-10] MEDS ORDERED: Phenylephrine 40 mcg/mL 10mL (400mcg) SYRINGE IV PUSH PRN ×2 (22:50)
[2022-06-10] MEDS ORDERED: OBEPIDURAL (200 ML) 200 ML EPIDURAL SCH (23:00)
[2022-06-11 00:32] LABS: Urine Appearance Cloudy; Urine Bilirubin Negative (Negative); Urine Blood 1+ (Negative); Urine Color Yellow; Urine Glucose Negative (Negative); Urine Ketones Negative (Negative); Urine Nitrite Negative (Negative); Urine Protein 2+(100 mg/dL) (Negative); Urine Specific Gravity 1.019 (1.002-1.030); Urine Urobilinogen Negative (Negative)
[2022-06-11 00:49] LABS: Urine Bacteria Absent (Absent); Urine Granular Casts Present (Absent); Urine Red Blood Cell 3+(>10/hpf) (Absent); Urine Squamous Epithelial Cell Present (Absent); Urine White Blood Cell Trace(0-5/hpf) (Absent)
[2022-06-11] MEDS ORDERED: Dibucaine 1% OINT 28.35 GM TUBE PR PRN (08:01)
[2022-06-11] MEDS ORDERED: Glycerin ADULT 2.4 gm SUPP PR PRN (08:01)
[2022-06-11] MEDS ORDERED: Witch Hazel PAD JAR TOPICAL PRN (08:01)
[2022-06-12 07:50] LABS: ABS Eosinophils 0.2 10^3/ul (0-0.6); ABS Lymphocytes 2.8 10^3/ul (1.0-4.8); ABS Monocytes 1.4 10^3/ul (0-0.8); ABS Neutrophils 11.6 10^3/ul (1.5-7.7); Hematocrit 36 % (35-47); Hemoglobin 12.1 g/dL (12.0-16.0); Lymphocyte % 17.8 %; Mean Corpuscular HGB Conc 34 g/dL (31-36); Mean Corpuscular Hemoglobin 31 pg (27-31); Mean Corpuscular Volume 91 fL (80-97); Mean Platelet Volume 7.6 fL (7.4-10.4); Platelet Count 248 10^3/uL (150-450); Red Blood Count 3.93 10^6 /uL (3.70-4.87); Red Cell Distribution Width 15 % (10-15)
[2022-06-12 15:52] VITALS: BP 135/87
== END 2022-06-12 17:22 | disposition home or self-care (01) | DRG 560 ==
LOC: MCHOBOUT 13:01 → MCHOB 15:04
PROVIDERS: ADMIT Midwife; ATTEND Midwife